=== PATIENT | male | born 1985 | race Two or more races ===

== ENCOUNTER 2024-03-25 22:28 | Inpatient (IN) | payer BC, OTHER ==
[~2024-03-25] VITALS: Ht 175.3 cm; Wt 120.5 kg
--- NOTE | 2024-03-25 22:48 | ED.PDOC ---
HPI Comments 39-year-old male came to ER due to chest pains. Patient does have history of hypertension but is not taking any medications for it. At about 2:30 p.m. patient started having chest pains, so he took Ibuprofen for the pain and decided to sleep it off. After dinner, he started having chest pains again, substernal, pressure, radiating to his jaw and back area and associated with shortness of breath and diaphoresis. Blood pressure upon arrival was 157/93 mmHg Chief Complaint: Chest Pain Time Seen by MD: 22:47 Reviewed Notes: Nurses Notes Allergies: Coded Allergies: Morphine (Verified Allergy, Severe, 03/25/24) Information Source: Patient Mode of Arrival: EMS Severity: Moderate Timing: Hours Duration: Since onset Prehospital treatment: None Location: Substernal Radiation: Back, Jaw Quality: Pressure Onset: With Light Exertion Cardiac Risk Factors: HTN PE Risk Factors: None Modifying Factors: Nothing Associated Signs and Symptoms: SOB, Diaphoresis Past Medical History PAST MEDICAL HISTORY: HTN Surgical History: Appendectomy Family History Family History: Reviewed,noncontributory to illness Social History Smoker: Non-Smoker Alcohol: Denies ETOH Use Drugs: Denies Drug Use Lives In: Home Constitutional: denies: chills, diaphoresis, fatigue, fever, malaise, sweats, weakness, others EENTM: denies: blurred vision, double vision, ear bleeding, ear discharge, ear drainage, ear pain, ear ringing, eye pain, eye redness, hearing loss, mouth pain, mouth swelling, nasal discharge, nose bleeding, nose congestion, nose pain, photophobia, tearing, throat pain, throat swelling, voice changes, others Respiratory: reports: shortness of breath; denies: cough, hemoptysis, orthopnea, SOB at rest, SOB with excertion, stridor, wheezing, others Cardiovascular: reports: chest pain; denies: dizzy spells, diaphoresis, Dyspnea on exertion, edema, irregular heart beat, left arm pain, lightheadedness, palpitations, PND, syncope, others Gastrointestinal: denies: abdomen distended, abdominal pain, blood streaked bowels, constipated, diarrhea, dysphagia, difficulty swallowing, hematemesis, melena, nausea, poor appetite, poor fluid intake, rectal bleeding, rectal pain, vomiting, others Genitourinary: denies: burning, dysuria, flank pain, frequency, hematuria, incontinence, penile discharge, penile sore, pain, testicle pain, testicle swelling, urgency, others Neurological: denies: dizziness, fainting, headache, left sided numbness, left sided weakness, numbness, paresthesia, pre-existing deficit, right sided numbness, right sided weakness, seizure, speech problems, tingling, tremors, weakness, others Musculoskeletal: reports: back pain; denies: gout, joint pain, joint swelling, muscle pain, muscle stiffness, neck pain, others Integumetry: denies: bruises, change in color, change in hair/nails, dryness, laceration, lesions, lumps, rash, wounds, others Allergic/Immunocompromised: denies: Difficulty Healing, Frequent Infections, Hives, Itching, others Hematologic/Lymphatic: denies: anemia, blood clots, easy bleeding, easy bruising, swollen glands, others Endocrine: denies: excessive hunger, excessive sweating, excessive thirst, excessive urination, flushing, intolerance to cold, intolerance to heat, unexplained weight gain, unexplained weight loss, others Psychiatric: denies: anxiety, bipolar disorder, depression, hopeless, panic disorder, schizophrenia, sleepless, suicidal, others Physical Exam General Appearance: Moderate Distress, Normal HEENT: Normal ENT Inspection, Pharynx Normal, TMs Normal Neck: Full Range of Motion, Non-Tender, Normal, Normal Inspection Respiratory: Chest Non-Tender, Lungs Clear, No Accessory Muscle Use, No Respiratory Distress, Normal Breath Sounds Cardiovascular: No Edema, No JVD, No Murmur, No Gallop, Normal Peripheral Pulses, Regular Rate/Rhythm Breast Exam: Deferred Gastrointestinal: No Organomegaly, Non Tender, No Pulsatile Mass, Normal Bowel Sounds, Soft Genitalia: Deferred Pelvic: Deferred Rectal: Deferred Extremities: No calf tenderness, Normal capillary refill, Normal inspection, Normal range of motion, Non-tender, No pedal edema Musculoskeletal : Apperance: Normal Neurologic: Alert, electric range assembler II-XII nml as Tested, No Motor Deficits, Normal Affect, Normal Mood, No Sensory Deficits Cerebellar Function: Normal Reflexes: Normal Skin: Dry, Normal Color, Warm Lymphatic: No Adenopathy Was a procedure done? Was a procedure done?: No CP Differential Dx Differential Diagnosis: Angina, Anxiety / Panic Attack Differential Diagnosis: Angina, Chest Wall Pain, Costochondritis, Esophageal reflux/spasm, Gastritis, Myocardial Infarction, Pneumonia X-Ray, Labs, Meds, VS Vital Signs Date Time Temp Pulse Resp B/P (MAP) Pulse Ox O2 Delivery O2 Flow Rate FiO2 03/26/24 01:00 98.6 105 34 124/80 (95) 97 98.6 03/26/24 00:30 103 03/25/24 23:00 113 22 136/94 (108) 96 03/25/24 22:52 115 18 143/96 (112) 96 03/25/24 22:51 97.6 115 19 137/103 (114) 96 97.6 03/25/24 22:51 101 14 97 Room Air* 0 21 03/25/24 22:35 109 03/25/24 22:30 97.7 109 18 151/93 (112) 97 Lab Test 03/26/24 00:34 03/25/24 23:32 03/25/24 22:39 Range/Units Lactic Acid Level 2.0 2.2 *H 0.4-2.0 mmol/L Troponin I High Sensitivity < 3 L < 3 L </=54 ng/L White Blood Count 20.1 H 4.4-10.8 10^3/uL Red Blood Count 5.46 4.5-5.90 10^6/uL Hemoglobin 15.5 13.5-17.5 g/dL Hematocrit 45.3 41.0-53.0 % Mean Corpuscular Volume 83.1 80.0-100.0 fL Mean Corpuscular Hemoglobin 28.4 28.0-32.0 pg Mean Corpuscular Hemoglobin Concent 34.2 32.0-36.0 g/dL Red Cell Distribution Width 12.9 11.8-14.3 % Platelet Count 386 140-450 10^3/uL Mean Platelet Volume 8.1 6.9-10.8 fL Neutrophils (%) (Auto) 73.8 37.0-80.0 % Lymphocytes (%) (Auto) 14.3 10.0-50.0 % Monocytes (%) (Auto) 9.1 0.0-12.0 % Eosinophils (%) (Auto) 1.7 0.0-7.0 % Basophils (%) (Auto) 1.1 0.0-2.0 % Neutrophils # (Auto) 14.8 H 1.6-8.6 10 ^3/uL Lymphocytes # (Auto) 2.9 0.4-5.4 10 ^3/uL Monocytes # (Auto) 1.8 H 0-1.3 10 ^3/uL Eosinophils # (Auto) 0.3 0-0.8 10 ^3/uL Basophils # (Auto) 0.2 0-0.2 10 ^3/uL Nucleated Red Blood Cells 0.1 % Sodium Level 139 136-145 mmol/L Potassium Level 3.7 3.5-5.1 mmol/L Chloride Level 104 98-107 mmol/L Carbon Dioxide Level 27 20-31 mmol/L Anion Gap 8 5-15 Blood Urea Nitrogen 14 9-23 mg/dL Creatinine 1.15 0.700-1.30 mg/dL Glomerular Filtration Rate Calc 84 >90 mL/min BUN/Creatinine Ratio 12.2 10.0-20.0 Serum Glucose 85 74-106 mg/dL Calcium Level 10.6 H 8.7-10.4 mg/dL Current Medications Medications (Trade) Dose Ordered Sig/Nellie Route Start Time Stop Time Status Last Admin Ketorolac Tromethamine (Toradol Injection) 15 mg ONCE ONCE IV 03/25/24 23:45 03/25/24 23:47 DC 03/25/24 23:57 Sodium Chloride 1,000 ml @ 1,000 mls/hr Q1H ONCE IV 03/25/24 23:45 03/26/24 00:44 DC 03/25/24 23:53 Piperacillin Sod/ Tazobactam Sod 50 ml @ 50 mls/hr ONCE ONCE IV 03/26/24 00:15 03/26/24 01:14 DC 03/26/24 00:12 Vancomycin HCl 250 ml @ 250 mls/hr ONCE ONCE IV 03/26/24 00:45 03/26/24 01:44 03/26/24 00:45 Time of 1ST Reevaluation: 22:41 Reevaluation 1ST: Unchanged Patient Education/Counseling: Diagnosis, Treatment Family Education/Counseling: No Family Present Departure 1 Departure Time of Disposition: 01:35 (Patient presented with chest pain that was concerning for possible STEMI, ACS, PE, Pneumonia, Muscle Strain, COPD, Di ssection. Data: 1. I ordered and reviewed the result of at least 3 labs including a CBC, BMP, and Troponin. 2. I independently interpreted the following tests: EKG which shows ST elevations in 2 3 and AVF and Chest X-ray which shows concern for viral syndrome.Risk:This patient has a high risk of morbidity due to further diagnostic testing or treatment and may suffer from an acute cardiac or respiratory disorder. Workup reveals likely pericarditis however possible pneumonia so we will empirically cover patient with antibiotics and fluids and patient should be admitted for further workup and possible expert consultation. ) Impression: Primary Impression: Acute chest pain Disposition: ADMITTED INPATIENT Admit to: Med Surg Condition: Serious Critical Care Note Critical Care Time?: Yes (35 min-critical care time only) Critical care comment: Acute chest pain Authorized and Performed by: Dwayne Baer MD Total critical care time: Approximately 38 minutes Due to a high probability of clinically significant, life threatening deterioration, the patient required my highest level of preparedness to intervene emergently and I personally spent this critical care time directly and personally managing the patient. This critical care time included obtaining a history; examining the patient; pulse oximetry; ordering and review of studies; arranging urgent treatment with development of a management plan; evaluation of patient's response to treatment; frequent reassessment; and, discussions with other providers. This critical care time was performed to assess and manage the high probability of imminent, life-threatening deterioration that could result in multi-organ failure. It was exclusive of separately billable procedures and treating other patients and teaching time. Please see my other sections and the rest of the note for further information on patient assessment and treatment. Stability Stability form required: No Heart Score Heart Score: Heart Score Response (Comments) Value History Moderate Suspicious [address]-Deviation 2 Age <45 0 Risk Factors No known risk factors 0 Troponin Normal limit 0 Total 3 I personally scribed for DWAYNE BAER MD ([email or web address]) on 03/25/24 at 22:48. Electronically submitted by Timmy oGldsmith ([email or web address]). DWAYNE BAER MD Mar 25, 2024 22:48
[2024-03-25 22:51] VITALS: PULSE 101; RESP 14; O2SAT 97
[2024-03-25 22:57] LABS: Basophils # (auto) 0.2 10 ^3/uL (0-0.2); Basophils % (auto) 1.1 % (0.0-2.0); Eosinophils # (auto) 0.3 10 ^3/uL (0-0.8); Eosinophils % (auto) 1.7 % (0.0-7.0); Hematocrit 45.3 % (41.0-53.0); Hemoglobin 15.5 g/dL (13.5-17.5); Lymphocytes # (auto) 2.9 10 ^3/uL (0.4-5.4); Lymphocytes % (auto) 14.3 % (10.0-50.0); Mean Corpuscular Hemoglobin 28.4 pg (28.0-32.0); Mean Corpuscular Hgb Conc. 34.2 g/dL (32.0-36.0); Mean Corpuscular Volume 83.1 fL (80.0-100.0); Monocytes # (auto) 1.8 10 ^3/uL (0-1.3); Monocytes % (auto) 9.1 % (0.0-12.0); Neutrophils # (auto) 14.8 10 ^3/uL (1.6-8.6); Neutrophils % (auto) 73.8 % (37.0-80.0); Nucleated Red Blood Cells % 0.1 %; Platelet Count (auto) 386 10^3/uL (140-450); Red Blood Cells 5.46 10^6/uL (4.5-5.90); Red Cell Distribution Width 12.9 % (11.8-14.3); White Blood Cell 20.1 10^3/uL (4.4-10.8)
--- NOTE | 2024-03-25 23:03 | DVHINCON2 ---
Date of service: Mar 25, 2024 History of Present Illness 39 yo M with little PMH< recent URI and bacterial ear infection on abx, coming in for chest pain which is worse with breathing in. pt has CP midline and i mrpvoed mid day and came back again at night. ecg shows Sinus rhythm with subtle st change inferiorly . Past Medical History reviewed Allergies: Coded Allergies: Morphine (Verified Allergy, Severe, 03/25/24) Review of Systems 10 pt ros otherwise negative Vital Signs Vital Signs Date Time Temp Pulse Resp B/P (MAP) Pulse Ox O2 Delivery O2 Flow Rate FiO2 03/25/24 22:30 97.7 109 18 151/93 (112) 97 Physical Exam nad s1 s2 tachycardic ctab soft nt/nd no edema Labs/Diagnostic Data Labs Test 03/25/24 22:39 Range/Units White Blood Count 20.1 H 4.4-10.8 10^3/uL Red Blood Count 5.46 4.5-5.90 10^6/uL Hemoglobin 15.5 13.5-17.5 g/dL Hematocrit 45.3 41.0-53.0 % Mean Corpuscular Volume 83.1 80.0-100.0 fL Mean Corpuscular Hemoglobin 28.4 28.0-32.0 pg Mean Corpuscular Hemoglobin Concent 34.2 32.0-36.0 g/dL Red Cell Distribution Width 12.9 11.8-14.3 % Platelet Count 386 140-450 10^3/uL Mean Platelet Volume 8.1 6.9-10.8 fL Neutrophils (%) (Auto) 73.8 37.0-80.0 % Lymphocytes (%) (Auto) 14.3 10.0-50.0 % Monocytes (%) (Auto) 9.1 0.0-12.0 % Eosinophils (%) (Auto) 1.7 0.0-7.0 % Basophils (%) (Auto) 1.1 0.0-2.0 % Neutrophils # (Auto) 14.8 H 1.6-8.6 10 ^3/uL Lymphocytes # (Auto) 2.9 0.4-5.4 10 ^3/uL Monocytes # (Auto) 1.8 H 0-1.3 10 ^3/uL Eosinophils # (Auto) 0.3 0-0.8 10 ^3/uL Basophils # (Auto) 0.2 0-0.2 10 ^3/uL Nucleated Red Blood Cells 0.1 % Assessment chest pain tachycardia recent URI r/ O ACS Plan/Recommendation check cxr check BMP and trops /labs check flu status will assess pending above results 40 mins critical care time spent Plan discussed with: Patient FOSTER,DIMAS Lindo MD Mar 25, 2024 23:03
[2024-03-25 23:07] LABS: Chloride 104 mmol/L (98-107); Potassium 3.7 mmol/L (3.5-5.1); Sodium 139 mmol/L (136-145)
[2024-03-25 23:08] LABS: Anion Gap 8 (5-15); Carbon Dioxide 27 mmol/L (20-31)
[2024-03-25 23:13] LABS: BUN/Creatinine Ratio 12.2 (10.0-20.0); Blood Urea Nitrogen 14 mg/dL (9-23); Glucose 85 mg/dL (74-106)
[2024-03-25 23:34] LABS: Calcium 10.6 mg/dL (8.7-10.4)
[2024-03-25 23:39] LABS: Lactic Acid w/Reflex 2.2 mmol/L (0.4-2.0)
[2024-03-25] MEDS: SODIUM CHLORIDE 0.9% 1,000 ML IV ONE (23:51)
[2024-03-25] MEDS: KETOROLAC TROMETH 30 MG/ML 1ML VIAL IV ONE (23:57)
[2024-03-26] MEDS: CEFEPIME 1GM/ 50ML 50 ML IV ONE (00:02)
[2024-03-26] MEDS: CEFEPIME 2GM/50ML NS 50 ML IV ONE (00:05)
[2024-03-26] MEDS: PIPERACILLIN-TAZOB 2.25GM 50 ML IV ONE (00:12)
[2024-03-26] MEDS: VANCOMYCIN 1GM/250ML KIT 250 ML IV ONE (00:45)
--- NOTE | 2024-03-26 01:59 | DVH ---
EXAM: XY CHEST PORTABLE CLINICAL HISTORY: chest pain TECHNIQUE: Single AP view of the chest WID: COMPARISON: None FINDINGS: Lines and tubes: None Chest: The heart size and pulmonary vasculature is within normal limits. No pleural effusion, pneumothorax, or consolidation. The osseous structures are grossly intact. IMPRESSION: No acute cardiopulmonary abnormality.
[2024-03-26 04:17] LABS: Urine Bacteria FEW /hpf (None Seen); Urine Blood Negative /uL (Negative); Urine Clarity Clear (Clear); Urine Color Yellow (Yellow); Urine Mucus FEW (None Seen); Urine Protein, UAD Negative (Negative); Urine Specific Gravity 1.024 (1.001-1.035); Urine Squamous Epithelial Cell FEW /hpf (<5); Urine Urobilinogen Normal (Negative); Urine WBC 2 /hpf (0 - 3)
[2024-03-26 05:00] VITALS: PULSE 91; RESP 18; O2SAT 99
--- NOTE | 2024-03-26 05:09 | DVHHP2 ---
History of Present Illness Reason for Visit: Acute chest pain History of Present Illness The patient is a 39-year-old male morbidly obese with past medical history of hypertension who presented to [facility] ED with complaint of chest pain. Patient reports having substernal chest pain, pressure in nature, radiating to his jaw and back, associated shortness of breaths, diaphoresis, getting worse that prompted this visit. Patient was seen and evaluated in the ED, laboratory data shows WBC 20.1, platelets 386, sodium 139, potassium 3.7, BUN 14, creatinine 1.15, glucose 85, GFR 84, lactic acid 2.2 trending down to 2.0, calcium 10.6, troponin < 3. Patient was started on IV antibiotic regimen Zosyn, please see medication orders section in the computer. On my assessment, patient denies chest pain at this moment, no headache, no dizziness, no diaphoresis, no nausea, no vomiting, no fever, no chills. Patient was admitted for further evaluation and medical management. Past Medical History HTN Past Surgical History Appendectomy Family History Reviewed, noncontributory to the management of this case. Past Social History The patient lives at home, denies smoking, alcohol or illicit drugs abuse. Review of Systems Constitutional: No: Fever, Chills, Sweats, Weakness, Malaise, Other Eyes: No: Pain, Vision change, Conjunctivae inflammation, Eyelid inflammation, Other, Redness ENT: No: Ear pain, Ear discharge, Nose pain, Nose discharge, Nose congestion, Mouth pain, Mouth swelling, Throat pain, Throat swelling, Other Respiratory: Shortness of breath; No: Cough, Dry, SOB with excertion, Wheezing, Hemoptysis, Pleuritic Pain, Sputum, Wheezing, Other Cardiovascular: Chest Pain; No: Palpitations, Orthopnea, Paroxysmal Noc. Dyspnea, Edema, Lt Headedness, Other Gastrointestinal: No: Nausea, Vomiting, Abdominal Pain, Diarrhea, Constipation, Melena, Hematochezia, Other Genitourinary: No Dysuria, No Frequency, No Incontinence, No Hematuria, No Retention, No Other Musculoskeletal: back pain; No: other, neck pain, shoulder pain, arm pain, hand pain, leg pain, foot pain Skin: No: Rash, Lesions, Jaundice, Bruising, Other Neurological: No: Weakness, Numbness, Incoordination, Change in speech, Confusion, Seizures, Other Allergies: Coded Allergies: Morphine (Verified Allergy, Severe, 03/25/24) Medications Current Medications Medications Dose Ordered Sig/Nellie Route Start Time Stop Time Status Last Admin Dose Admin Piperacillin Sod/ Tazobactam Sod 100 ml @ 25 mls/hr Q8HR IV 03/26/24 06:00 UNV Sodium Chloride 1,000 ml @ 60 mls/hr [id number] IV 03/26/24 05:15 UNV Acetaminophen/ Hydrocodone Bitart 1 tab Q4HP PRN PO 03/26/24 05:15 UNV Ondansetron HCl 4 mg Q4HP PRN IV 03/26/24 05:15 UNV Docusate Sodium 100 mg BIDPRN PRN PO 03/26/24 05:15 UNV Acetaminophen 650 mg Q6HP PRN PO 03/26/24 05:15 UNV Nitroglycerin 0.4 mg Q5MINP PRN SL 03/26/24 05:15 UNV Morphine Sulfate 2 mg Q30M PRN IV 03/26/24 05:15 UNV Exam Vital Signs Vital Signs Date Time Temp Pulse Resp B/P (MAP) Pulse Ox O2 Delivery O2 Flow Rate FiO2 03/26/24 04:00 98.0 96 17 120/79 (93) 97 98.0 03/25/24 22:51 Room Air* 0 21 General Appearance: Alert, Oriented X3, Cooperative, No acute distress HEENT: Atraumatic, PERRLA, EOMI, Mucous membr. moist/pink Respiratory: Clear to auscultation, Normal air movement Cardiovascular: Regular rate, Normal S1, Normal S2, No murmurs Abdominal: Normal bowel sounds, Soft, No tenderness, No hepatospenomegaly, No masses Extremities: No clubbing, No cyanosis, No edema, Normal pulses, No tenderness/swelling Skin: No rashes, No breakdown, No significant lesion Neuro: Normal gait, Normal speech, Strength at 5/5 X4 ext, Normal tone, Sensation intact, Cranial nerves 3-12 NL, Reflexes 2+ Psych/Mental Status: Mental status NL, Mood NL Labs/Xrays Labs Test 03/26/24 03:37 03/26/24 01:37 03/26/24 00:34 03/25/24 22:39 Range/Units Urine Color Yellow Yellow Urine Clarity Clear Clear Urine pH 6.0 5.0-9.0 Urine Specific [place] 1.024 1.001-1.035 Urine Protein Negative Negative Urine Ketones Negative Negative Urine Blood Negative Negative /uL Urine Nitrite Negative Negative Urine Bilirubin Negative Negative Urine Urobilinogen Normal Negative mg/dL Urine Leukocyte Esterase Negative Negative /uL Urine RBC 1 0 - 3 /hpf Urine WBC 2 0 - 3 /hpf Urine Squamous Epithelial Cells Few <5 /hpf Urine Bacteria Few H None Seen /hpf Urine Mucus Few None Seen Urine Glucose Normal Normal mg/dL Troponin I High Sensitivity < 3 L </=54 ng/L Lactic Acid Level 2.0 0.4-2.0 mmol/L White Blood Count 20.1 H 4.4-10.8 10^3/uL Red Blood Count 5.46 4.5-5.90 10^6/uL Hemoglobin 15.5 13.5-17.5 g/dL Hematocrit 45.3 41.0-53.0 % Mean Corpuscular Volume 83.1 80.0-100.0 fL Mean Corpuscular Hemoglobin 28.4 28.0-32.0 pg Mean Corpuscular Hemoglobin Concent 34.2 32.0-36.0 g/dL Red Cell Distribution Width 12.9 11.8-14.3 % Platelet Count 386 140-450 10^3/uL Mean Platelet Volume 8.1 6.9-10.8 fL Neutrophils (%) (Auto) 73.8 37.0-80.0 % Lymphocytes (%) (Auto) 14.3 10.0-50.0 % Monocytes (%) (Auto) 9.1 0.0-12.0 % Eosinophils (%) (Auto) 1.7 0.0-7.0 % Basophils (%) (Auto) 1.1 0.0-2.0 % Neutrophils # (Auto) 14.8 H 1.6-8.6 10 ^3/uL Lymphocytes # (Auto) 2.9 0.4-5.4 10 ^3/uL Monocytes # (Auto) 1.8 H 0-1.3 10 ^3/uL Eosinophils # (Auto) 0.3 0-0.8 10 ^3/uL Basophils # (Auto) 0.2 0-0.2 10 ^3/uL Nucleated Red Blood Cells 0.1 % Sodium Level 139 136-145 mmol/L Potassium Level 3.7 3.5-5.1 mmol/L Chloride Level 104 98-107 mmol/L Carbon Dioxide Level 27 20-31 mmol/L Anion Gap 8 5-15 Blood Urea Nitrogen 14 9-23 mg/dL Creatinine 1.15 0.700-1.30 mg/dL Glomerular Filtration Rate Calc 84 >90 mL/min BUN/Creatinine Ratio 12.2 10.0-20.0 Serum Glucose 85 74-106 mg/dL Calcium Level 10.6 H 8.7-10.4 mg/dL PATIENT: MORRIS LIM ACCT: [id number] UNIT: [id number] : 1985 LOC: ER ROOM / BED: / AGE / SEX: 39 / M ADM STATUS: REG ER SERVICE ORDERING PHYSICIAN: DWAYNE NO MD PROCEDURE(s): CXRP - CHEST PORTABLE REASON: chest pain ORDER NUMBER(s): [id number], ACCESSION NUMBER(s): [id number] EXAM: XY CHEST PORTABLE CLINICAL HISTORY: chest pain TECHNIQUE: Single AP view of the chest WID: COMPARISON: None FINDINGS: Lines and tubes: None Chest: The heart size and pulmonary vasculature is within normal limits. No pleural effusion, pneumothorax, or consolidation. The osseous structures are grossly intact. IMPRESSION: No acute cardiopulmonary abnormality. Assessment/Plan Assessment/Plan Acute chest pain Generalized weakness Leukocytosis, unspecified Plan 1. Admit to telemetry unit 2. Breathing treatment 3. Pain control management 4. IV antibiotic management 5. Management of fluids and electrolytes 6. Consultation for hospitalist 7. Diagnostic test chest x-ray 8. DVT prophylaxis-in and sprain 9. Repeat labs CBC, CMP in a.m. 10. Home medication reviewed and reconciled 11. Continue with current medical management 12. Treatment plan discussed with patient and RN. Patient verbalized understanding. Plan discussed with: Patient, Other (RN) My Orders Orders - JOE BENJAMIN DNP Procedure Category Date Status Time Complete Blood Count LAB 03/26/24 Transmitted 05:01 Comprehensive LAB 03/26/24 Transmitted Metabolic Panel 05:01 Piperacillin-Tazob PHA 03/26/24 Logged 3.375gm (Zosyn 3.375g 06:00 Admit ADMIT 03/26/24 Transmitted 05:01 Allergies GINGER 03/26/24 In Process 05:01 Code Status CODE 03/26/24 Transmitted 05:01 Sodium Chloride 0.9% [facility] 03/26/24 Logged 05:15 Oxygen Per Hour RT 03/26/24 Transmitted 05:01 Hydrocodone-Acet [facility] 03/26/24 Transmitted 5/325mg Tab ([place] 05:15 Ondansetron Hcl PHA 03/26/24 Transmitted (Zofran) 05:15 Docusate Sodium [facility] 03/26/24 Transmitted Capsule (Colace 05:15 Complete Blood Count LAB 03/27/24 Verified 04:00 Comprehensive LAB 03/27/24 Verified Metabolic Panel 04:00 Cardiac DIET 03/26/24 Transmitted Diet-2gna,Lofat,Lochol Breakfast Condition: Serious [facility] 03/26/24 In Process 05:01 Acetaminophen Tablet [facility] 03/26/24 Transmitted (Tylenol Tablet) 05:15 Bedrest With Bathroom [facility] 03/26/24 In Process Privileg 05:01 Sequential [facility] 03/26/24 Transmitted Compression Device Nitroglycerin [facility] 03/26/24 Transmitted Sublingual (Ntrostat 05:15 Morphine Sulfate [facility] 03/26/24 Transmitted Injection 05:15 Notify Of Changes [facility] 03/26/24 Transmitted From Base 05:01 [employer] Member For [facility] 03/26/24 Transmitted 24 Hours 05:01 Emergency Dysrhythmia [facility] 03/26/24 Transmitted Protocol 05:01 Rhythm Strips Once [facility] 03/26/24 Transmitted Every Shift 05:01 Oxygen By Nasal RT 03/26/24 Transmitted Cannula 05:01 Problem List: (1) Acute chest pain (2) Generalized weakness (3) Leukocytosis, unspecified Date of Service: Mar 26, 2024 Billing Provider: JOE BENJAMIN DNP Common Visit Codes: 11475-[id number] INP/OBS CARE (HIGH) JOE BENJAMIN DNP Mar 26, 2024 05:09
[2024-03-26] MEDS ORDERED: NITROGLYCERIN 0.4 MG SL TAB SL PRN (05:15)
[2024-03-26] MEDS ORDERED: MORPHINE SULFATE INJ 2 MG/ml SYRG IV PRN (05:15)
[2024-03-26] MEDS ORDERED: HYDROcodone-ACET 5/325MG TAB PO PRN (05:15)
[2024-03-26] MEDS ORDERED: ACETAMINOPHEN 325 MG TAB PO PRN (05:15)
[2024-03-26] MEDS ORDERED: DOCUSATE SOD 100 MG CAP PO PRN (05:15)
[2024-03-26] MEDS ORDERED: ONDANSETRON HCL 4 MG/2 ML VIAL IV PRN (05:15)
[2024-03-26] MEDS: SODIUM CHLORIDE 0.9% 1,000 ML IV SCH (05:29)
[2024-03-26] MEDS: PIPERACILLIN-TAZOB 3.375GM 100 ML IV SCH (06:11)
[2024-03-26 06:34] LABS: Basophils # (auto) 0.1 10 ^3/uL (0-0.2); Basophils % (auto) 0.4 % (0.0-2.0); Eosinophils # (auto) 0.2 10 ^3/uL (0-0.8); Eosinophils % (auto) 1.3 % (0.0-7.0); Hematocrit 44.2 % (41.0-53.0); Hemoglobin 14.9 g/dL (13.5-17.5); Lymphocytes # (auto) 2.2 10 ^3/uL (0.4-5.4); Lymphocytes % (auto) 13.5 % (10.0-50.0); Mean Corpuscular Hemoglobin 28.2 pg (28.0-32.0); Mean Corpuscular Hgb Conc. 33.7 g/dL (32.0-36.0); Mean Corpuscular Volume 83.6 fL (80.0-100.0); Monocytes # (auto) 1.6 10 ^3/uL (0-1.3); Monocytes % (auto) 10.1 % (0.0-12.0); Neutrophils # (auto) 11.9 10 ^3/uL (1.6-8.6); Neutrophils % (auto) 74.7 % (37.0-80.0); Nucleated Red Blood Cells % 0.1 %; Platelet Count (auto) 337 10^3/uL (140-450); Red Blood Cells 5.29 10^6/uL (4.5-5.90); White Blood Cell 15.9 10^3/uL (4.4-10.8)
[2024-03-26 06:37] LABS: Albumin 4.5 g/dL (3.2-4.8); Anion Gap 6 (5-15); Aspartate Aminotransferase 28 U/L (13-40); BUN/Creatinine Ratio 10.7 (10.0-20.0); Blood Urea Nitrogen 12 mg/dL (9-23); Calcium 10.2 mg/dL (8.7-10.4); Carbon Dioxide 26 mmol/L (20-31); Chloride 107 mmol/L (98-107); Glucose 103 mg/dL (74-106); Potassium 4.2 mmol/L (3.5-5.1); Sodium 139 mmol/L (136-145)
[2024-03-26 06:38] LABS: Total Protein 7.5 g/dL (5.7-8.2)
[2024-03-26 06:50] LABS: Alanine Aminotransferase 47 U/L (7-40); Alkaline Phosphatase 118 U/L (46-116); Bilirubin, Total 1.2 mg/dL (0.2-1.0)
[2024-03-26] MEDS: KETOROLAC TROMETH 30 MG/ML 1ML VIAL IV PRN (18:08)
[2024-03-26 20:24] VITALS: PULSE 98; RESP 32; O2SAT 96
[2024-03-27] VITALS (10 sets, daily range): BP systolic 119–125; BP diastolic 68–85; PULSE 72–98; RESP 19–20; TEMP 97.2–99.4; O2SAT 93–98
[2024-03-27 04:03] LABS: Basophils # (auto) 0.1 10 ^3/uL (0-0.2); Basophils % (auto) 0.7 % (0.0-2.0); Eosinophils # (auto) 0.3 10 ^3/uL (0-0.8); Eosinophils % (auto) 3.2 % (0.0-7.0); Hematocrit 39.6 % (41.0-53.0); Hemoglobin 13.7 g/dL (13.5-17.5); Lymphocytes % (auto) 29.4 % (10.0-50.0); Mean Corpuscular Hemoglobin 28.7 pg (28.0-32.0); Mean Corpuscular Hgb Conc. 34.6 g/dL (32.0-36.0); Mean Corpuscular Volume 83.1 fL (80.0-100.0); Monocytes # (auto) 0.9 10 ^3/uL (0-1.3); Monocytes % (auto) 8.7 % (0.0-12.0); Platelet Count (auto) 286 10^3/uL (140-450); Red Blood Cells 4.77 10^6/uL (4.5-5.90); White Blood Cell 10.3 10^3/uL (4.4-10.8)
[2024-03-27 04:36] LABS: Alanine Aminotransferase 35 U/L (7-40); Alkaline Phosphatase 88 U/L (46-116); Anion Gap 7 (5-15); BUN/Creatinine Ratio 9.6 (10.0-20.0); Blood Urea Nitrogen 13 mg/dL (9-23); Calcium 9.3 mg/dL (8.7-10.4); Carbon Dioxide 25 mmol/L (20-31); Glucose 93 mg/dL (74-106); Potassium 3.8 mmol/L (3.5-5.1); Sodium 140 mmol/L (136-145)
[2024-03-27 04:37] LABS: Aspartate Aminotransferase 23 U/L (13-40)
[2024-03-27 04:38] LABS: Albumin 4.1 g/dL (3.2-4.8)
[2024-03-27 04:39] LABS: Chloride 108 mmol/L (98-107); Total Protein 6.5 g/dL (5.7-8.2)
--- NOTE | 2024-03-27 09:43 | ECG ---
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
--- NOTE | 2024-03-27 09:49 | ECG ---
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
--- NOTE | 2024-03-27 09:49 | ECG ---
[facility] Test Date: 2024-03-25 Test Time: 22:35:14 Pat Name: MORRIS LIM Department: ER Room: [address] [place] [address] Gender: M Ambulette Driver: JODY : 1985 Requested By: DWAYNE NO Order Number: [id number] Reading MD: Measurements Intervals [place] Rate: 109 P: 12 [place]: 161 QRS: -76 QRSD: 108 T: 45 QT: 340 QTc: 458 Interpretive Statements Sinus tachycardia Abnormal R-wave progression, late transition Inferior infarct, acute (LCx) Lateral leads are also involved Please click the below link to view image of tracing.
--- NOTE | 2024-03-27 11:47 | DVHPN2 ---
Reviewed: Care Plan, H&P, Labs, Medications Changes from previous H/P or p: No Changes General: Per HPI Eyes: No Pain, No Vision change, No Conjunctivae inflammation, No Eyelid inflammation, No Other, No Redness ENT: No Ear pain, No Ear discharge, No Nose pain, No Nose discharge, No Nose congestion, No Mouth pain, No Mouth swelling, No Throat pain, No Throat swelling, No Other Cardiovascular: Chest Pain; No Palpitations, No Orthopnea, No Paroxysmal Noc. Dyspnea, No Edema, No Lt Headedness, No Other Respiratory: No Cough, No Dry; Shortness of breath; No SOB with excertion, No Wheezing, No Hemoptysis, No Pleuritic Pain, No Sputum, No Other Gastrointestinal: No Nausea, No Vomiting, No Abdominal Pain, No Diarrhea, No Constipation, No Melena, No Hematochezia, No Other Genitourinary: No Dysuria, No Frequency, No Incontinence, No Hematuria, No Retention, No Other Musculoskeletal: No other, No neck pain, No shoulder pain, No arm pain; back pain; No hand pain, No leg pain, No foot pain Skin: No Rash, No Lesions, No Jaundice, No Bruising, No Other Objective Vitals Vital Signs Date Time Temp Pulse Resp B/P (MAP) Pulse Ox O2 Delivery O2 Flow Rate FiO2 03/27/24 10:09 96 15 125/81 (96) 99 03/27/24 10:00 Room Air* 0 21 03/27/24 06:13 98.2 98.2 Intake/Output Intake and Output 03/27/24 07:00 Intake Total 1780 ml Balance 1780 ml Intake IV Total 1780 ml Medications Current Medications Medications Dose Ordered Sig/Nellie Route Start Time Stop Time Status Last Admin Dose Admin Piperacillin Sod/ Tazobactam Sod 100 ml @ 25 mls/hr Q8HR IV 03/26/24 06:00 03/27/24 06:23 25 MLS/HR Sodium Chloride 1,000 ml @ 60 mls/hr [id number] IV 03/26/24 05:15 03/26/24 23:00 60 MLS/HR Ondansetron HCl 4 mg Q4HP PRN IV 03/26/24 05:15 Docusate Sodium 100 mg BIDPRN PRN PO 03/26/24 05:15 Acetaminophen 650 mg Q6HP PRN PO 03/26/24 05:15 Nitroglycerin 0.4 mg Q5MINP PRN SL 03/26/24 05:15 Ketorolac Tromethamine 15 mg Q6HPRN PRN IV 03/26/24 14:45 03/31/24 14:44 03/26/24 18:08 15 MG Laboratory Results Laboratory Tests 03/27/24 03:45 Chemistry Test 03/27/24 03:45 Albumin 4.1 g/dL (3.2-4.8) Calcium Level 9.3 mg/dL (8.7-10.4) Total Protein 6.5 g/dL (5.7-8.2) LFT Test 03/27/24 03:45 Alanine Aminotransferase (ALT) 35 U/L (7-40) Alkaline Phosphatase 88 U/L (46-116) Aspartate Amino Transferase (AST) 23 U/L (13-40) Total Bilirubin 1.0 mg/dL (0.2-1.0) Urinalysis Test 03/26/24 03:37 Urine Color Yellow (Yellow) Urine Clarity Clear (Clear) Urine pH 6.0 (5.0-9.0) Urine Specific [place] 1.024 (1.001-1.035) Urine Protein Negative (Negative) Urine Ketones Negative (Negative) Urine Blood Negative /uL (Negative) Urine Nitrite Negative (Negative) Urine Bilirubin Negative (Negative) Urine Urobilinogen Normal mg/dL (Negative) Urine Leukocyte Esterase Negative /uL (Negative) Urine RBC 1 /hpf (0 - 3) Urine WBC 2 /hpf (0 - 3) Urine Squamous Epithelial Cells Few /hpf (<5) Urine Bacteria Few /hpf (None Seen) H Urine Mucus Few (None Seen) Urine Glucose Normal mg/dL (Normal) Microbiology Microbiology Date/Time Source Procedure Growth Status 03/25/24 23:55 Blood Blood Culture - Preliminary Resulted Assessment/Plan Assessment/Plan Acute chest pain Generalized weakness Leukocytosis, unspecified rule out ACS MARIA T 03/27/2024: -- pending echo. Cardio consulted -- nephro consult for maria t -- leukocytosis improved Plan discussed with: Patient My Orders Orders - MELISSA STORNG DO Procedure Category Date Status Time Ketorolac Injection PHA 03/26/24 In Process (Toradol Injection) 14:45 Date of Service: Mar 27, 2024 Billing Provider: MELISSA STRONG DO Common Visit Codes: [id number] INP/OBS CARE(HIGH) MELISSA STRONG DO Mar 27, 2024 11:47
[2024-03-27 12:56] LABS: Hepatitis B Surface Antigen Negative (Negative)
[2024-03-27 13:20] LABS: Hepatitis C Antibody Negative (Negative)
--- NOTE | 2024-03-27 13:45 | DVHSR ---
APPROVED REPORT EXAM: Two-dimensional and M-mode echocardiogram with Doppler and color Doppler. Blood Pressure: 125/81 mmHg INDICATION Chest Pain RISK FACTORS Obesity: Height: 5'9", Weight: 265 DIMENSIONS LVDd4.8 (3.8-5.7cm)LA (2D)3.6 (1.9-4.0cm)Aortic Root3.9 (2.0-3.7cm) LVDs3.1 (2.5-4.0cm)LA (MM) (1.9-4.0cm)Aortic Cusp Exc2.2 (1.5-2.0cm) EF (%) 60.0 (55-70%)Rt. Atrium3.6 (1.9-4.0cm)Asc. Aorta3.0 cm IVSd1.2 (0.7-1.1cm)RV (D) (1.8-2.4cm) PWd1.3 (0.7-1.1cm) Mitral Valve MitralMitral Stenosis E wave0.66m/sMV Mean GR.mmHg A wave0.70m/sMV Peak GR.mmHg E/A ratio0.92D MVAcm2 DECEL [id number] 1/2 [place] Aortic Valve Aortic ValveAortic Stenosis V10.80m/Nati Mean GR.3mmHg V21.17m/Nati Peak GR.5mmHg LVOT Diameter2.5 (1.8-2.4cm)Doppler AVA3.35cm2 Pulmonic Valve V20.90m/s LEFT VENTRICLE The left ventricle is of normal size. Wall thickness is mildly increased. Ejection fraction is norm al and is estimated at 60%. There is no regional wall motion abnormalities. Diastolic function is p reserved. RIGHT VENTRICLE The right ventricle is likely of normal size and systolic function. ATRIA Both atria are of normal in size. MITRAL VALVE Normal structure and function. No significant mitral regurgitation. PULMONIC VALVE Likely normal. TRICUSPID VALVE Normal structure and function. There is trace tricuspid regurgitation. PA systolic pressure is not adequately estimated. AORTIC VALVE Normal structure and function. GREAT VESSELS The aortic root measures 3.9 cm at the sinuses of Valsalva. Proximal ascending aorta is of normal si ze. PERICARDIAL EFFUSION There is no pericardial effusion. IVC is dilated in size and collapses normally with inspiration. Other Information Technically limited study due to body habitus. Conclusion Normal left ventricular size and systolic function. Ejection fraction is estimated at 60%. Mild concentric left ventricular hypertrophy. Likely normal right ventricular size and systolic function. No hemodynamically significant valvular disease. PA systolic pressure isn't adequately estimated.
[2024-03-28] VITALS (7 sets, daily range): BP systolic 118–145; BP diastolic 70–86; PULSE 58–88; RESP 18–20; TEMP 97.7–98.6; O2SAT 91–99
--- NOTE | 2024-03-28 13:56 | DVHDS2 ---
Discharge Summary Date of Admission Mar 26, 2024 at 05:01 Date of Discharge: Mar 28, 2024 Labs/Diagnostic Data: Laboratory Results Test 03/27/24 03:45 03/26/24 03:37 03/26/24 01:37 03/26/24 00:34 White Blood Count 10.3 10^3/uL (4.4-10.8) Red Blood Count 4.77 10^6/uL (4.5-5.90) Hemoglobin 13.7 g/dL (13.5-17.5) Hematocrit 39.6 % (41.0-53.0) Mean Corpuscular Volume 83.1 fL (80.0-100.0) Mean Corpuscular Hemoglobin 28.7 pg (28.0-32.0) Mean Corpuscular Hemoglobin Concent 34.6 g/dL (32.0-36.0) Red Cell Distribution Width 13.0 % (11.8-14.3) Platelet Count 286 10^3/uL (140-450) Mean Platelet Volume 8.0 fL (6.9-10.8) Neutrophils (%) (Auto) 58.0 % (37.0-80.0) Lymphocytes (%) (Auto) 29.4 % (10.0-50.0) Monocytes (%) (Auto) 8.7 % (0.0-12.0) Eosinophils (%) (Auto) 3.2 % (0.0-7.0) Basophils (%) (Auto) 0.7 % (0.0-2.0) Neutrophils # (Auto) 6.0 10 ^3/uL (1.6-8.6) Lymphocytes # (Auto) 3.0 10 ^3/uL (0.4-5.4) Monocytes # (Auto) 0.9 10 ^3/uL (0-1.3) Eosinophils # (Auto) 0.3 10 ^3/uL (0-0.8) Basophils # (Auto) 0.1 10 ^3/uL (0-0.2) Nucleated Red Blood Cells 0.0 % Sodium Level 140 mmol/L (136-145) Potassium Level 3.8 mmol/L (3.5-5.1) Chloride Level 108 mmol/L (98-107) Carbon Dioxide Level 25 mmol/L (20-31) Anion Gap 7 (5-15) Blood Urea Nitrogen 13 mg/dL (9-23) Creatinine 1.35 mg/dL (0.700-1.30) Glomerular Filtration Rate Calc 69 mL/min (>90) BUN/Creatinine Ratio 9.6 (10.0-20.0) Serum Glucose 93 mg/dL (74-106) Calcium Level 9.3 mg/dL (8.7-10.4) Total Bilirubin 1.0 mg/dL (0.2-1.0) Aspartate Amino Transferase (AST) 23 U/L (13-40) Alanine Aminotransferase (ALT) 35 U/L (7-40) Alkaline Phosphatase 88 U/L (46-116) Total Protein 6.5 g/dL (5.7-8.2) Albumin 4.1 g/dL (3.2-4.8) Hepatitis B Surface Antigen Negative (Negative) Hepatitis C Antibody Negative (Negative) Urine Color Yellow (Yellow) Urine Clarity Clear (Clear) Urine pH 6.0 (5.0-9.0) Urine Specific [place] 1.024 (1.001-1.035) Urine Protein Negative (Negative) Urine Ketones Negative (Negative) Urine Blood Negative /uL (Negative) Urine Nitrite Negative (Negative) Urine Bilirubin Negative (Negative) Urine Urobilinogen Normal mg/dL (Negative) Urine Leukocyte Esterase Negative /uL (Negative) Urine RBC 1 /hpf (0 - 3) Urine WBC 2 /hpf (0 - 3) Urine Squamous Epithelial Cells Few /hpf (<5) Urine Bacteria Few /hpf (None Seen) Urine Mucus Few (None Seen) Urine Glucose Normal mg/dL (Normal) Troponin I High Sensitivity < 3 ng/L (</=54) Lactic Acid Level 2.0 mmol/L (0.4-2.0) Other Laboratory Tests 03/27/24 03:45 Brief Hx & Hospital Course: The patient is a 39-year-old male morbidly obese with past medical history of hypertension who presented to [facility] ED with complaint of chest pain. Patient reports having substernal chest pain, pressure in nature, radiating to his jaw and back, associated shortness of breaths, diaphoresis, getting worse that prompted this visit. Patient was seen and evaluated in the ED, laboratory data shows WBC 20.1, platelets 386, sodium 139, potassium 3.7, BUN 14, creatinine 1.15, glucose 85, GFR 84, lactic acid 2.2 trending down to 2.0, calcium 10.6, troponin < 3. Patient was started on IV antibiotic regimen Zosyn, please see medication orders section in the computer. On my assessment, patient denies chest pain at this moment, no headache, no dizziness, no diaphoresis, no nausea, no vomiting, no fever, no chills. Patient was admitted for further evaluation and medical management. Acute chest pain Generalized weakness Leukocytosis, unspecified rule out ACS MARIA T 03/27/2024: -- pending echo. Cardio consulted -- nephro consult for maria t -- leukocytosis improved 03/28/2024: nephro consulted for MARIA T discussed with cardio, cleared for d/c pt to f/u with specialist outpt as needed Condition at Discharge: Good Final Diagnosis/Problems List see above Discharge Disposition: Home Discharge Instruct/Medications Diet: Cardiac 2g Na,low cholest Activity: No Restrictions, As Tolerated Discharge Statement: "Patient was advised to return to the ER or call 911 if any headaches, dizziness, shortness of breath, chest pain, abdominal pain, bleeding, fevers, or worsening of medical condition. Patient was counseled about treatment plan, medications, possible side effects, patientverbalized understanding. All questions were answered to the best of my ability. This discharge took greater then 30 minutes in planning, reviewing documentation, counseling the patient, and discussing with other team members." ASSESSMENT ASSESSMENT Assessment Date of Service: Mar 28, 2024 Billing Provider: MELISSA STRONG DO Common Visit Codes: [id number] DISCH DAY >30min MELISSA STRONG DO Mar 28, 2024 13:56
--- NOTE | 2024-03-28 20:53 | DVHINCON2 ---
Date of service: Mar 28, [address] Zoltan Banuelos Reason for Consultation MARIA T History of Present Illness Alex Pritchett is a 39-year-old M with a Past Medical History pertinent for Hypertension and Morbidly obese who presented to the hospital with complaint of chest pain. Patient reported having substernal chest pain radiating to his jaw and back with associated shortness of breaths, diaphoresis. Patient denies any current chest pain or shortness of breath. Reports feeling better. While in ED, initial labs were remarkable for WBC 20.1, Platelets 386, Na 139, K 3.7, BUN 14, Creatinine 1.15, Glucose 85, GFR 84, Lactic acid 2.2. Troponin wnl x2. Battery Wrecker Operator consulted. Leukocytosis has improved. Latest Creatinine 1.35 on 03/27/24. Echocardiogram reported technically limited study due to body habitus; normal left ventricular size and systolic function; LV EF 60%; mild concentric left ventricular hypertrophy-additional findings per report. Allergies: Coded Allergies: Morphine (Verified Allergy, Severe, 03/25/24) Home Meds No Active Prescriptions or Reported Meds Family History: Diabetes mellitus G8 MOTHER FH: heart disease G8 FATHER Hypertension G8 FATHER Review of Systems 10 pt ROS otherwise negative. H&P Exam Vital Signs/I&O Vital Sign Date Time Temp Pulse Resp B/P (MAP) Pulse Ox O2 Delivery O2 Flow Rate FiO2 03/28/24 16:46 98.6 81 20 96 03/28/24 13:00 123/79 (94) 03/28/24 08:10 Room Air* 0 21 Intake and Output 03/27/24 03/28/24 19:00 07:00 Intake Total 1349 ml 340 ml Balance 1349 ml 340 ml Intake Oral 824 ml 240 ml IV Total 525 ml 100 ml # Voids 2 2 # Bowel Movements 1 Physical Exam General Appearance: Cooperative, No acute distress HEENT: Atraumatic, PERRLA, EOMI, Mucous membr. moist/pink Respiratory: Clear to auscultation, Normal air movement Cardiovascular: Regular rate, Normal S1, Normal S2, No murmurs Abdominal: Normal bowel sounds, Soft, No tenderness Extremities: No clubbing, No cyanosis, No edema, Normal pulses, No tenderness/swelling Skin: No rashes, No breakdown, No significant lesion Neuro: Alert, Oriented X3, Normal gait, Normal speech Psych/Mental Status: Mental status NL, Mood NL Labs/Diagnostic Data Labs/Diagnostic Data Laboratory Tests Test 03/27/24 03:45 03/26/24 06:00 03/26/24 03:37 03/26/24 01:37 Range/Units White Blood Count 10.3 # 15.9 H 4.4-10.8 10^3/uL Red Blood Count 4.77 5.29 4.5-5.90 10^6/uL Hemoglobin 13.7 14.9 13.5-17.5 g/dL Hematocrit 39.6 #L 44.2 41.0-53.0 % Mean Corpuscular Volume 83.1 83.6 80.0-100.0 fL Mean Corpuscular Hemoglobin 28.7 28.2 28.0-32.0 pg Mean Corpuscular Hemoglobin Concent 34.6 33.7 32.0-36.0 g/dL Red Cell Distribution Width 13.0 13.0 11.8-14.3 % Platelet Count 286 337 140-450 10^3/uL Mean Platelet Volume 8.0 8.4 6.9-10.8 fL Neutrophils (%) (Auto) 58.0 74.7 37.0-80.0 % Lymphocytes (%) (Auto) 29.4 13.5 10.0-50.0 % Monocytes (%) (Auto) 8.7 10.1 0.0-12.0 % Eosinophils (%) (Auto) 3.2 1.3 0.0-7.0 % Basophils (%) (Auto) 0.7 0.4 0.0-2.0 % Neutrophils # (Auto) 6.0 11.9 H 1.6-8.6 10 ^3/uL Lymphocytes # (Auto) 3.0 2.2 0.4-5.4 10 ^3/uL Monocytes # (Auto) 0.9 1.6 H 0-1.3 10 ^3/uL Eosinophils # (Auto) 0.3 0.2 0-0.8 10 ^3/uL Basophils # (Auto) 0.1 0.1 0-0.2 10 ^3/uL Nucleated Red Blood Cells 0.0 0.1 % Sodium Level 140 139 136-145 mmol/L Potassium Level 3.8 4.2 3.5-5.1 mmol/L Chloride Level 108 H 107 98-107 mmol/L Carbon Dioxide Level 25 26 20-31 mmol/L Anion Gap 7 6 5-15 Blood Urea Nitrogen 13 12 9-23 mg/dL Creatinine 1.35 H 1.12 0.700-1.30 mg/dL Glomerular Filtration Rate Calc 69 86 >90 mL/min BUN/Creatinine Ratio 9.6 L 10.7 10.0-20.0 Serum Glucose 93 103 74-106 mg/dL Calcium Level 9.3 10.2 8.7-10.4 mg/dL Total Bilirubin 1.0 1.2 H 0.2-1.0 mg/dL Aspartate Amino Transferase (AST) 23 28 13-40 U/L Alanine Aminotransferase (ALT) 35 47 H 7-40 U/L Alkaline Phosphatase 88 118 H 46-116 U/L Total Protein 6.5 7.5 5.7-8.2 g/dL Albumin 4.1 4.5 3.2-4.8 g/dL Hepatitis B Surface Antigen Negative Negative Hepatitis C Antibody Negative Negative Urine Color Yellow Yellow Urine Clarity Clear Clear Urine pH 6.0 5.0-9.0 Urine Specific [place] 1.024 1.001-1.035 Urine Protein Negative Negative Urine Ketones Negative Negative Urine Blood Negative Negative /uL Urine Nitrite Negative Negative Urine Bilirubin Negative Negative Urine Urobilinogen Normal Negative mg/dL Urine Leukocyte Esterase Negative Negative /uL Urine RBC 1 0 - 3 /hpf Urine WBC 2 0 - 3 /hpf Urine Squamous Epithelial Cells Few <5 /hpf Urine Bacteria Few H None Seen /hpf Urine Mucus Few None Seen Urine Glucose Normal Normal mg/dL Troponin I High Sensitivity < 3 L </=54 ng/L Test 03/26/24 00:34 03/25/24 23:32 03/25/24 22:39 Range/Units Lactic Acid Level 2.0 2.2 *H 0.4-2.0 mmol/L Troponin I High Sensitivity < 3 L < 3 L </=54 ng/L White Blood Count 20.1 H 4.4-10.8 10^3/uL Red Blood Count 5.46 4.5-5.90 10^6/uL Hemoglobin 15.5 13.5-17.5 g/dL Hematocrit 45.3 41.0-53.0 % Mean Corpuscular Volume 83.1 80.0-100.0 fL Mean Corpuscular Hemoglobin 28.4 28.0-32.0 pg Mean Corpuscular Hemoglobin Concent 34.2 32.0-36.0 g/dL Red Cell Distribution Width 12.9 11.8-14.3 % Platelet Count 386 140-450 10^3/uL Mean Platelet Volume 8.1 6.9-10.8 fL Neutrophils (%) (Auto) 73.8 37.0-80.0 % Lymphocytes (%) (Auto) 14.3 10.0-50.0 % Monocytes (%) (Auto) 9.1 0.0-12.0 % Eosinophils (%) (Auto) 1.7 0.0-7.0 % Basophils (%) (Auto) 1.1 0.0-2.0 % Neutrophils # (Auto) 14.8 H 1.6-8.6 10 ^3/uL Lymphocytes # (Auto) 2.9 0.4-5.4 10 ^3/uL Monocytes # (Auto) 1.8 H 0-1.3 10 ^3/uL Eosinophils # (Auto) 0.3 0-0.8 10 ^3/uL Basophils # (Auto) 0.2 0-0.2 10 ^3/uL Nucleated Red Blood Cells 0.1 % Sodium Level 139 136-145 mmol/L Potassium Level 3.7 3.5-5.1 mmol/L Chloride Level 104 98-107 mmol/L Carbon Dioxide Level 27 20-31 mmol/L Anion Gap 8 5-15 Blood Urea Nitrogen 14 9-23 mg/dL Creatinine 1.15 0.700-1.30 mg/dL Glomerular Filtration Rate Calc 84 >90 mL/min BUN/Creatinine Ratio 12.2 10.0-20.0 Serum Glucose 85 74-106 mg/dL Calcium Level 10.6 H 8.7-10.4 mg/dL Assessment Acute chest pain Generalized weakness Leukocytosis MARIA T Plan/Recommendation Agree with current supportive medical care. Cleared for discharge per Cardiology. Discharge planning in progress. IVFs given. Advised outpatient PCP follow up. Plan discussed with: Patient, Other (RN) JUNG ANTHONY DO Mar 28, 2024 20:53
== END 2024-03-28 17:42 | disposition home or self-care (01) | DRG 311 ==
LOC: ER 22:28 → TELE 03-26 05:01 → TELE-CENTR 03-27 10:53
PROVIDERS: ADMIT Nurse Practitioner Family; ATTEND Internal Medicine
PROC: 5A09357 Assistance with Respiratory Ventilation, Less than 24 Consecutive Hours, Continuous Positive Airway Pressure (ICD-10-PCS; principal; 2024-03-27)
PROC: 5A09357 Assistance with Respiratory Ventilation, Less than 24 Consecutive Hours, Continuous Positive Airway Pressure (ICD-10-PCS; 2024-03-28)
DX: I24.9 Acute ischemic heart disease, unspecified (principal); N17.9 Acute kidney failure, unspecified; D72.829 Elevated white blood cell count, unspecified; I10 Essential (primary) hypertension; Z88.5 Allergy status to narcotic agent; Z90.49 Acquired absence of other specified parts of digestive tract; Z82.49 Family history of ischemic heart disease and other diseases of the circulatory system; Z83.3 Family history of diabetes mellitus
CPT/HCPCS: 36415; 80048; 80053; 81001; 83605; 84484; 85025; 86803; 86850; 86900; 86901; 87040; 87340; 93005; 93306; 94660; 96374; 99291; G0378; J1885; J2543